=== PATIENT | female | born 1955 | race Caucasian/White ===

== ENCOUNTER → 2016-11-25 | Outpatient (REF) | payer OTHER ==
[~2016-11-25] MED LIST: /CLON1TA OR; /DULO30CA OR; ACET500C OR; ALFALFA PO; ARTHROTEC PO; EPIP0.3I IM; FLEXERIL PO; POTASSIUM PO; ROBA750T OR; SOMA350T OR; TIZA4TAB OR; TRAM50TA2 OR; TRAZ50TA OR; TYLENOL ARTHRITIS PO; TYLENOL PM PO; VARE1TA OR; [UNRECOGNIZED DRUG - REMARK] PO
== END ==
LOC: M LAB REF 16:26
PROVIDERS: ATTEND Physician Assistant
DX: N39.0 Urinary tract infection, site not specified (principal)

== ENCOUNTER → 2017-06-17 | Outpatient (CLI) | payer OTHER ==
--- NOTE | 2017-06-17 10:41 | REPMRS ---
Patient History The patient states she has not had a clinical breast exam in over a year. Patient is postmenopausal. Family history of breast cancer in mother at age 42, breast cancer in paternal grandmother at age 70, and colorectal cancer in daughter at age 31. Digital Woman Screen Mammo: June 17, 2017 - Exam #: [id number] Bilateral CC and MLO view(s) were taken. Technologist: Carla Castle, Technologist Prior study comparison: August 11, 2014, digital woman screen mammo performed at [facility]. April 16, 2010, bilateral screening mammogram, performed at [facility] ([facility] FINDINGS: There are scattered fibroglandular densities. There has been no change in the appearance of the mammogram from the prior studies. There is a mild amount of scattered fibroglandular density which is fairly symmetric. There is no interval development of dominant mass, architectural distortion, or clustered microcalcification suggestive of malignancy. ASSESSMENT: BI-RADS/ACR category 1 mammogram. Negative. Recommendation Routine screening mammogram in 1 year (for women over age 40). This patient's Lifetime Breast Cancer RIsk is estimated at 16.3 %. Annual screening Breast MRI scanniing is recommended for patient's whose lifetime risk assessment is over 20%. This mammogram was interpreted with the aid of an FDA-approved computer-aided dectection system. Electronically Signed By: Mathew Brown MD 06/17/17 [id number]
== END ==
LOC: M WHC 07:59
PROVIDERS: ATTEND Nurse Practitioner Family
DX: Z12.31 Encounter for screening mammogram for malignant neoplasm of breast (principal)

== ENCOUNTER → 2017-08-06 | Outpatient (CLI) | payer OTHER, MEDICAID | LOC: M PAIN 11:15 | DX: G89.29 Other chronic pain (principal); M53.3 Sacrococcygeal disorders, not elsewhere classified; M54.40 Lumbago with sciatica, unspecified side; F41.9 Anxiety disorder, unspecified; M16.11 Unilateral primary osteoarthritis, right hip; M17.12 Unilateral primary osteoarthritis, left knee; I10 Essential (primary) hypertension; E78.5 Hyperlipidemia, unspecified; K21.9 Gastro-esophageal reflux disease without esophagitis; Z88.0 Allergy status to penicillin; Z88.5 Allergy status to narcotic agent; Z88.8 Allergy status to other drugs, medicaments and biological substances; Z79.899 Other long term (current) drug therapy; Z87.891 Personal history of nicotine dependence | CPT/HCPCS: G0463 ==

== ENCOUNTER → 2017-08-18 | Outpatient (CLI) | payer OTHER | LOC: M PLARAD 08:44 | DX: M53.3 Sacrococcygeal disorders, not elsewhere classified (principal); M47.9 Spondylosis, unspecified | CPT/HCPCS: 72148 ==

== ENCOUNTER → 2017-08-27 | Outpatient (CLI) | payer OTHER, MEDICAID | LOC: M PAIN 09:30 | DX: M51.27 Other intervertebral disc displacement, lumbosacral region (principal); M54.16 Radiculopathy, lumbar region; M48.07 Spinal stenosis, lumbosacral region; M16.11 Unilateral primary osteoarthritis, right hip; M17.12 Unilateral primary osteoarthritis, left knee; E78.5 Hyperlipidemia, unspecified; Z79.899 Other long term (current) drug therapy; Z88.0 Allergy status to penicillin; Z88.5 Allergy status to narcotic agent; Z88.8 Allergy status to other drugs, medicaments and biological substances | CPT/HCPCS: G0463 ==

== ENCOUNTER → 2017-09-09 | Outpatient (CLI) | payer OTHER, MEDICAID ==
[~2017-09-09] MED LIST changes: -/CLON1TA OR; -/DULO30CA OR; -ACET500C OR; -ALFALFA PO; -ARTHROTEC PO; -EPIP0.3I IM; -FLEXERIL PO; +ISOVUE-M 300 61% 15ML VIAL (Q9967) As Ordered; +LIDOCAINE 1% SDV INJ 30 ML VIAL As Ordered; -POTASSIUM PO; -ROBA750T OR; -SOMA350T OR; -TIZA4TAB OR; -TRAM50TA2 OR; -TRAZ50TA OR; -TYLENOL ARTHRITIS PO; -TYLENOL PM PO; -VARE1TA OR; -[UNRECOGNIZED DRUG - REMARK] PO; +diazePAM 5 MG TAB As Ordered; +methylPREDNISolone SUSP 40 MG/ML (DEPO-medrol) VIAL (J1030) As Ordered; +oxyCODONE 5MG TAB As Ordered
== END ==
LOC: M PAIN 14:30
DX: G89.29 Other chronic pain (principal); M51.16 Intervertebral disc disorders with radiculopathy, lumbar region; I10 Essential (primary) hypertension; M16.11 Unilateral primary osteoarthritis, right hip; M17.12 Unilateral primary osteoarthritis, left knee; E78.5 Hyperlipidemia, unspecified; F41.1 Generalized anxiety disorder; Z79.899 Other long term (current) drug therapy; Z88.0 Allergy status to penicillin; Z88.5 Allergy status to narcotic agent; Z88.8 Allergy status to other drugs, medicaments and biological substances; Z87.891 Personal history of nicotine dependence
CPT/HCPCS: J1030

== ENCOUNTER → 2017-09-12 | Outpatient (CLI) | payer OTHER, MEDICAID | LOC: M PAIN 10:45 | DX: M51.27 Other intervertebral disc displacement, lumbosacral region (principal); M54.16 Radiculopathy, lumbar region; M48.07 Spinal stenosis, lumbosacral region; I10 Essential (primary) hypertension; E78.5 Hyperlipidemia, unspecified; K21.9 Gastro-esophageal reflux disease without esophagitis; Z79.899 Other long term (current) drug therapy; Z88.8 Allergy status to other drugs, medicaments and biological substances | CPT/HCPCS: G0463 ==

== ENCOUNTER → 2017-10-21 | Outpatient (CLI) | payer OTHER, MEDICAID | LOC: M PAIN 10:00 | DX: G89.29 Other chronic pain (principal); M51.27 Other intervertebral disc displacement, lumbosacral region; M54.16 Radiculopathy, lumbar region; M48.07 Spinal stenosis, lumbosacral region; K21.9 Gastro-esophageal reflux disease without esophagitis; F41.1 Generalized anxiety disorder; M16.11 Unilateral primary osteoarthritis, right hip; M17.12 Unilateral primary osteoarthritis, left knee; I10 Essential (primary) hypertension; E78.5 Hyperlipidemia, unspecified; Z87.891 Personal history of nicotine dependence; Z88.0 Allergy status to penicillin; Z88.5 Allergy status to narcotic agent; Z88.6 Allergy status to analgesic agent; Z79.899 Other long term (current) drug therapy | CPT/HCPCS: G0463 ==

== ENCOUNTER 2017-12-26 11:10 | Outpatient (RCR) | payer OTHER, MEDICAID | END 2018-01-17 | LOC: M PT 11:10 | DX: Z51.89 Encounter for other specified aftercare (principal); M54.2 Cervicalgia | CPT/HCPCS: 97010 ==

== ENCOUNTER 2018-01-20 09:27 | Outpatient (RCR) | payer OTHER | END 2018-02-17 | LOC: M PT 09:27 | DX: Z51.89 Encounter for other specified aftercare (principal); M54.2 Cervicalgia ==

== ENCOUNTER → 2018-01-23 | Outpatient (CLI) | payer OTHER | LOC: M RAD 10:49 | DX: M25.78 Osteophyte, vertebrae (principal); M50.31 Other cervical disc degeneration, high cervical region; M50.321 Other cervical disc degeneration at C4-C5 level; M50.821 Other cervical disc disorders at C4-C5 level; Z98.1 Arthrodesis status; Z87.310 Personal history of (healed) osteoporosis fracture | CPT/HCPCS: 72052 ==

== ENCOUNTER 2019-02-02 11:04 | Day surgery (SDC) | payer OTHER ==
[~2019-02-02] VITALS: Ht 167.6 cm; Wt 90.7 kg
[~2019-02-02 11:04] MED LIST changes: +ACET500C OR; +ALFALFA PO; +ARTHROTEC PO; +CLINDAMYCIN 900 MG in APPROPRIATE DILUENT 1 EA IV ONE; +CLON-412 OR; +CLONI1TA PO; +CYMB1CAP5 OR; +EPIP0.3I IM; +FLEXERIL PO; +FLON1SPR; +HYDR12CA PO; -ISOVUE-M 300 61% 15ML VIAL (Q9967) As Ordered; -LIDOCAINE 1% SDV INJ 30 ML VIAL As Ordered; +LIDOCAINE 2% INJ 100 MG/5 ML SDV (FOR ANES.) As Ordered ONE; +MIDAZOLAM INJ 2 MG/2 ML VIAL (J2250) As Ordered ONE; +NAPR-855 PO; +ONDANSETRON 4MG/2ML VIAL (J2405) As Ordered ONE; +POTASSIUM PO; +PROPOFOL 200 MG/20 ML VIAL As Ordered ONE; +RANI150T PO; +ROBA750T OR; +SM M250T PO; +SOMA350T OR; +TIZA4TAB OR; +TRAM50TA2 OR; +TRAZ50TA OR; +TYLENOL ARTHRITIS PO; +TYLENOL PM PO; +VARE1TA OR; +XANA1TAB2 PO; +[UNRECOGNIZED DRUG - REMARK] PO; +dexameTHASONE 4 MG/ML 1ML VIAL (J1100) As Ordered ONE; -diazePAM 5 MG TAB As Ordered; +fentaNYL 100 MCG/2 ML INJECTION (J3010) As Ordered ONE; -methylPREDNISolone SUSP 40 MG/ML (DEPO-medrol) VIAL (J1030) As Ordered; -oxyCODONE 5MG TAB As Ordered; +tylenol pm PO
[2019-02-02] MEDS ORDERED: CLINDAMYCIN 600 MG/50 ML PREMIX BAG As Ordered ONE (12:46)
[2019-02-02] MEDS ORDERED: CLINDAMYCIN INJ 900MG/6ML VIAL As Ordered ONE (12:48)
[2019-02-02] MEDS ORDERED: SCOPOLAMINE 1MG TRANSDERMAL PATCH As Ordered ONE (13:09)
[2019-02-02] MEDS ORDERED: METOCLOPRAMIDE INJ 10MG/2ML VIAL (J2765) As Ordered ONE (13:32)
[2019-02-02] MEDS ORDERED: SCOPOLAMINE 1MG TRANSDERMAL PATCH TOP ONE (13:45)
[2019-02-02] MEDS ORDERED: LR 1,000 ML IV ONE (13:45)
[2019-02-02] MEDS ORDERED: KETOROLAC 60 MG/2 ML VIAL (J1885) As Ordered ONE (14:31)
[2019-02-02] MEDS ORDERED: fentaNYL 100 MCG/2 ML INJECTION (J3010) As Ordered ONE (14:31)
[2019-02-02] MEDS: PERCOCET 5MG/325MG TAB PO PRN ×2 (14:40→15:09)
[2019-02-02] MEDS ORDERED: PERCOCET 5MG/325MG TAB As Ordered ONE (14:41)
--- NOTE | 2019-02-02 14:51 | REP ---
RIGHT ANKLE: TWO VIEWS. HISTORY: Hardware removal. 1 minute 33 seconds of fluoroscopy time is reported. FINDINGS: AP and lateral views of the right calcaneus and ankle demonstrate pin tracks, status post subtalar joint arthrodesis. No metallic hardware is seen. Electronically Signed by Negrito Brown MD 02/02/2019 03:03 P
[2019-02-02] MEDS ORDERED: fentaNYL 100 MCG/2 ML INJECTION (J3010) IV PRN (15:00)
[2019-02-02] MEDS ORDERED: ONDANSETRON 4MG/2ML VIAL (J2405) IV PRN (15:00)
[2019-02-02] MEDS ORDERED: LR 1,000 ML IV SCH (15:00)
[2019-02-02 15:55] VITALS: BP 135/69
--- NOTE | 2019-02-02 20:21 | ECGEPIP ---
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
--- NOTE | 2019-02-05 08:27 | RO ---
DATE OF PROCEDURE: 02/02/2019 PREOPERATIVE DIAGNOSES: 1. Painful right foot hardware. 2. Right heel callus. POSTOPERATIVE DIAGNOSES: 1. Painful right foot hardware. 2. Right heel callus. PROCEDURE: 1. Right foot removal of hardware. 2. Right heel excision callus. SURGEON: Aye Schaeffer MD PROJECT ENGINEER CHEMICALS: REDDY Murray and REDDY Velasquez. ANESTHESIA: Laryngeal mask airway (LMA). ESTIMATED BLOOD LOSS (EBL): 5 mL. COMPLICATIONS: None. CONDITION: Stable to recovery. INDICATIONS: Yarelis Maki is a 63-year-old female who has had difficulty with painful hardware status post a subtalar fusion at an outside institution. Risks and benefits of surgery were discussed with the patient in detail and include, but are not limited to, infection, damage to nerves and blood vessels, continued pain and stiffness, need for additional procedures. Informed consent was obtained in the office. DESCRIPTION OF PROCEDURE: Patient was met in the preoperative holding area where her right lower extremity was marked as the correct operative side. Informed consent was reviewed. She was then taken to the operating room and placed in the supine position on the operating room table. Bony prominences were well padded. She underwent LMA anesthesia. A well padded tourniquet was applied to the right upper thigh. The right lower extremity underwent a chlorhexidine scrub and then was prepped and draped in the normal sterile fashion. An official time-out was held with the correct patient, operative site and operative procedure were verified. At this point, the first screw was localized using a lateral C-arm. A small stab incision was made in the heel. I was able to easily localize the screw with a guidewire. There was no cannulated screwdriver available and so, the screw was further isolated and was removed with ease using the appropriate screwdriver. Following this, the second screw was similarly localized using C-arm. Again, a wire was placed to confirm exact location of that screw. The area was then curetted out and screws remained with a screwdriver. At this point, the patient's callus was then excised as well using a fresh knife. Her stab incisions were closed using a #3-0 Vicryl and #3-0 nylon. A well padded dressing was applied. The patient was extubated and taken to the recovery room in stable condition. PLAN: The patient will be partial weightbearing in the right lower extremity using a boot until her wounds heal. She will followup in 2 weeks with Kartik for suture removal. She can then advance her activities as long as her wounds look healed.
== END 2019-02-02 16:15 | disposition home or self-care (01) ==
LOC: M SDC 11:04
PROVIDERS: ATTEND Orthopaedic Surgery
DX: T84.84XA Pain due to internal orthopedic prosthetic devices, implants and grafts, initial encounter (principal); I10 Essential (primary) hypertension; K21.9 Gastro-esophageal reflux disease without esophagitis; M12.9 Arthropathy, unspecified; M79.7 Fibromyalgia; F41.9 Anxiety disorder, unspecified; F40.240 Claustrophobia; T88.59XD Other complications of anesthesia, subsequent encounter; Z88.0 Allergy status to penicillin; Z88.5 Allergy status to narcotic agent; Z88.8 Allergy status to other drugs, medicaments and biological substances; Z78.0 Asymptomatic menopausal state; Z79.899 Other long term (current) drug therapy; Z96.643 Presence of artificial hip joint, bilateral; Z96.652 Presence of left artificial knee joint
CPT/HCPCS: 20680; 76000; 93005; J1100; J1885; J2250; J2405; J2765; J3010

== ENCOUNTER → 2019-02-25 | Outpatient (CLI) | payer OTHER ==
[~2019-02-25] MED LIST changes: -CLINDAMYCIN 900 MG in APPROPRIATE DILUENT 1 EA IV ONE; -LIDOCAINE 2% INJ 100 MG/5 ML SDV (FOR ANES.) As Ordered ONE; -MIDAZOLAM INJ 2 MG/2 ML VIAL (J2250) As Ordered ONE; -ONDANSETRON 4MG/2ML VIAL (J2405) As Ordered ONE; -PROPOFOL 200 MG/20 ML VIAL As Ordered ONE; -dexameTHASONE 4 MG/ML 1ML VIAL (J1100) As Ordered ONE; -fentaNYL 100 MCG/2 ML INJECTION (J3010) As Ordered ONE
--- NOTE | 2019-02-26 02:15 | REP ---
Clinical: Chronic sinusitis. Technique: Four views of the facial sinuses. Findings: Partial opacification and mucosal thickening primarily involves the left maxillary sinus. No fluid level. No foreign body. Osseous structures are intact. Impression: Mucosal thickening to the left maxillary sinus. Electronically Signed by Geovanny Herzog MD 02/26/2019 02:06 A
== END ==
LOC: M RAD 16:36
PROVIDERS: ATTEND Nurse Practitioner
DX: J32.9 Chronic sinusitis, unspecified (principal)

== ENCOUNTER → 2019-03-16 | Outpatient (REF) | payer OTHER | LOC: M LAB REF 17:14 | PROVIDERS: ATTEND Otolaryngology | DX: J32.0 Chronic maxillary sinusitis (principal) ==

== ENCOUNTER → 2019-03-24 | Outpatient (CLI) | payer OTHER ==
[~2019-03-24] MED LIST changes: +ALL10TAB29 PO
--- NOTE | 2019-03-24 15:21 | REP ---
Maxillofacial CT study without contrast: History: Chronic maxillary sinusitis. No comparison imaging. Findings: The left maxillary sinus is completely opacified. There is a large air-fluid level and moderate mucosal thickening in the right maxillary sinus. There is moderate bilateral anterior ethmoid sinusitis, left more prominent than right. The left frontal sinus is completely opacified. Sphenoid air cells are clear. Mastoid aeration is normal and symmetric. Bony sinus and orbital margins are intact. The ostiomeatal complexes are obscured by mucosal thickening. Nasal turbinate soft tissues are symmetric. No nasal polyp is appreciated. Bony nasal septum is not deviated. No intra orbital or intracranial abnormality is seen. Impression: Polysinusitis changes as above. Electronically Signed by Negrito Brown MD 03/24/2019 03:37 P
== END ==
LOC: M RAD 14:14
PROVIDERS: ATTEND Otolaryngology
DX: J32.0 Chronic maxillary sinusitis (principal); J32.2 Chronic ethmoidal sinusitis; J32.1 Chronic frontal sinusitis

== ENCOUNTER 2019-04-13 10:35 | Day surgery (SDC) | payer OTHER ==
[~2019-04-13] VITALS: Ht 167.6 cm; Wt 89.4 kg
[2019-04-13] MEDS ORDERED: SCOPOLAMINE 1MG TRANSDERMAL PATCH As Ordered ONE (12:24)
[2019-04-13] MEDS ORDERED: SCOPOLAMINE 1MG TRANSDERMAL PATCH TOP ONE (12:30)
[2019-04-13] MEDS ORDERED: LR 1,000 ML IV ONE (12:30)
[2019-04-13] MEDS ORDERED: LIDOCAINE W/EPINEPHRINE 1% 20ML VIAL As Ordered ONE (13:03)
[2019-04-13] MEDS ORDERED: SODIUM CHLORIDE 0.9% NASAL GEL 15GM (AYR) As Ordered ONE (13:03)
[2019-04-13] MEDS ORDERED: METHYLENE BLUE 0.5% (5MG/ML) 10 ML AMP (PROVAYBLUE)(Q9968 PER 1MG) As Ordered ONE (13:03)
[2019-04-13] MEDS ORDERED: OXYMETAZOLINE NASAL SPRAY (AFRIN) As Ordered ONE ×2 (13:04→14:28)
[2019-04-13] MEDS ORDERED: LACRILUBE (AKWA TEARS) OPHTH OINT 3.5 GM As Ordered ONE (13:14)
[2019-04-13] MEDS ORDERED: ROCURONIUM BROMIDE 50 MG/5 ML VIAL As Ordered ONE (13:14)
[2019-04-13] MEDS ORDERED: LIDOCAINE 2% INJ 100 MG/5 ML SDV (FOR ANES.) As Ordered ONE (13:14)
[2019-04-13] MEDS ORDERED: propofoL 200 MG/20 ML VIAL As Ordered ONE (13:14)
[2019-04-13] MEDS ORDERED: CLINDAMYCIN 600 MG/50 ML PREMIX BAG As Ordered ONE (13:14)
[2019-04-13] MEDS ORDERED: ONDANSETRON 4MG/2ML VIAL (J2405) As Ordered ONE ×2 (13:14→16:18)
[2019-04-13] MEDS ORDERED: fentaNYL 250 MCG/5 ML INJECTION (J3010) As Ordered ONE (13:14)
[2019-04-13] MEDS ORDERED: MIDAZOLAM INJ 2 MG/2 ML VIAL (J2250) As Ordered ONE (13:14)
[2019-04-13] MEDS ORDERED: dexameTHASONE 4 MG/ML 1ML VIAL (J1100) As Ordered ONE (13:14)
[2019-04-13] MEDS ORDERED: CLINDAMYCIN 600 MG in IV 1 EA IV ONE (13:30)
[2019-04-13] MEDS ORDERED: SUGAMMADEX SODIUM 500 MG/5 ML VIAL (BRIDION) As Ordered ONE (14:05)
[2019-04-13] MEDS ORDERED: ePHEDrine SULFATE 25 MG/5 ML(5MG/ML) SYRINGE As Ordered ONE (14:05)
[2019-04-13] MEDS ORDERED: HYDROmorphone HCL 2 MG/ML 1ML VIAL (J1170) As Ordered ONE (15:16)
[2019-04-13] MEDS ORDERED: LABETALOL HCL 100 MG/20 ML VIAL As Ordered ONE (15:57)
[2019-04-13] MEDS ORDERED: METOCLOPRAMIDE INJ 10MG/2ML VIAL (J2765) As Ordered ONE (16:24)
[2019-04-13] MEDS ORDERED: HYDROMORPHONE HCL 0.5 MG/ 0.5 ML SYRINGE (J1170 PER 1) IV PRN (16:30)
[2019-04-13] MEDS ORDERED: fentaNYL 100 MCG/2 ML INJECTION (J3010) IV PRN (16:30)
[2019-04-13] MEDS ORDERED: ONDANSETRON 4MG/2ML VIAL (J2405) IV PRN (16:30)
[2019-04-13] MEDS ORDERED: PERCOCET 5MG/325MG TAB PO PRN (16:30)
[2019-04-13] MEDS ORDERED: METOCLOPRAMIDE INJ 10MG/2ML VIAL (J2765) IV PRN (16:30)
[2019-04-13] MEDS ORDERED: ACETAMINOPHEN TAB 650MG DOSE (2X325MG) PO PRN (16:45)
[2019-04-13] MEDS: KETOROLAC 30 MG/ML VIAL (J1885) IV ONE ×2 (16:45→17:45)
[2019-04-13 18:20] VITALS: BP 139/67
--- NOTE | 2019-04-14 11:41 | RO ---
DATE OF OPERATION: 04/13/2019 PREOPERATIVE DIAGNOSES: Chronic pansinusitis with severe foul purulence mainly from the left middle meatus but also affecting the left frontal, anterior ethmoids, and maxillary sinus, also with findings on previous CT scan affecting right maxillary sinus and right anterior ethmoids but not to the same extent, and also nasal congestion. POSTOPERATIVE DIAGNOSES: Chronic pansinusitis with severe foul purulence mainly from the left middle meatus but also affecting the left frontal, anterior ethmoids, and maxillary sinus, also with findings on previous CT scan affecting right maxillary sinus and right anterior ethmoids but not to the same extent, and also nasal congestion. OPERATIONS PERFORMED: 1. Bilateral endoscopic partial ethmoidectomies. 2. Endoscopic left maxillary sinusotomy with removal of tissue and irrigation. 3. Right endoscopic maxillary sinusotomy. 4. Left balloon frontal sinuplasty. 5. Bilateral inferior turbinoplasty utilizing the microdebrider. SURGEON: Sam Sandoval Jr., MD FISH FROG OR OYSTER FARMER: ANESTHESIA:General endotracheal anesthesia, Dr. Henderson. IMPLANTS USED: Left contour Propel stent in the left maxillary sinusotomy site and left and right partial ethmoidectomy had mini Propel stents placed. PROCEDURE IN DETAIL: The patient in a supine position after being induced, intubated, prepped and draped in the usual fashion. The seal mixer had noticed a foul smell, which the patient had been noticing for some time. The patient was noted after intubation as having the left nasal cavity filled with pus. This was suctioned out. The nasal cavity was significantly congested. This was also suctioned out, and topical Afrin pledgets were placed in the nasal cavity. The septum was relatively straight after this was done. Time-out had been performed. The patient identified for the procedure. At this point, utilizing the Acclarent balloon device, the left frontal sinus was cannulated with the Coreen device with clear identification and movement of the frontal sinus with clear focal isolation of the left frontal sinus. The left frontal balloon was easily cannulated into the area. Once this was done, the balloon was slowly raised from 2 to 4 to 6 to 8 to 12 cm of H2O, and the sinus was irrigated, and luna pus was coming out after the Coreen device was removed. Attention then was drawn to the left maxillary, where there was luna pus that was coming out of the middle meatus, as well as the ethmoid area. The maxillary seeker was used identify the left maxillary ostium. As this was done, luna pus came out. A culture of aerobic, anaerobic, and fungal was performed, as well as Gram stain. Then, utilizing a curvilinear olive-tip suction, the maxillary sinus was cannulated, and there was thick thick chronic inflammatory and acute inflammatory changes in the maxillary sinus opening. The uncinate process had essentially eroded. The pediatric backbiter was used to further remove some of the anterior tissue; and then once the maxillary sinus had been drained of luna pus, this area was then utilized to enhance the opening with a straight thru-cut going into the posterior maxillary sinus side. Once this was done, the sinus was copiously irrigated with irrigation. Luna pus was significantly obtained again. Another culture had been taken. So, two sets of cultures were obtained from the left maxillary sinus. After this was completely irrigated multiple times and wide patent maxillary ostium was done, a Cyclops scope was used to take photo documentation of the maxillary sinus, and there was no evidence of any foreign body that could be identified. Inspissated pus was completely removed with irrigation, and there was much improvement in the maxillary sinus after copious irrigation. Next, utilizing the Straightshot microdebrider with the blade more towards the central aspect away from the lamina papyracea, anterior ethmoidectomy was performed along with 45 degrees straight thru-cuts as necessary with care not to aggressively use the microdebrider; and then also in a similar fashion, the left maxillary sinus was also done, as well. The patient also prior to surgery had clindamycin given intravenous (IV) because of hip implant that she had. The patient had a very careful partial ethmoidectomy performed with again the straight microdebrider, as well as 45-degree thru-cut, as well as with a straight punch and minimal controlled burst with the microdebrider, again with the blade facing away from the lamina papyracea. Once this was done, pledgets were placed in the opening of the partial ethmoidectomy. Attention was drawn to the right side, where there was a little bit of a high septal deviation, but the surgeon felt the procedure could be done without removal of that. The patient ended up requiring medialization of the paradoxical curve of the right middle turbinate. Once this was done, the patient had identification with the maxillary seeker of the natural ostium site; and on this side, the uncinate did not appear to be eroded. Utilizing the frontal seeker and the maxillary seeker, the uncinate process which had been previously injected at its base was moved slightly anteriorly, and a 45-degree thru-cut was used after the pediatric backbiter was used to enhance the anterior portion of the natural ostium. The patient then had attention drawn to the anterior ethmoidectomy with controlled microdebrider with the cutting blade facing towards the center away from the lamina papyracea. Ethmoid bulla was identified and partially removed. The maxillary sinusotomy site was partially enhanced with the pediatric backbiter and also enhanced posteriorly with straight thru-cuts. The maxillary sinus on the right side appeared to be much more healthy than the other side. This was irrigated with saline, and there was no pus identified at this time. At this point, the 2.9 microdebrider was changed, and submucosal resection of the inferior turbinates after injecting with 2 mL of 1% lidocaine with 1:100,000 epinephrine in each inferior turbinate with a 27-gauge needle was performed to decrease the inflammation of the inferior turbinates. At this point, the patient had a contour Propel splint placed in the left middle meatus that had been created, and this was irrigated with saline; and then a mini Propel splint was placed in left anterior ethmoid site, and again this was hydrated. The right middle meatus had a Propel mini placed in the anterior ethmoid site, as well. These were carefully hydrated. Blood was suctioned from the nasal cavity, and nasal packing was trimmed along its long axis and with care was placed along the floor of the nasal cavity to prevent any dislodgement of the Propel splints; and the patient was turned over to the seal mixer. No problems. No complications. Again, anesthesia was general via endotracheal tube. EBL 75 mls. Initial seal mixer was Dr. Henderson. Ending anesthesiologist was Dr. Benavidez. [facility] HOSPITALBalta
== END 2019-04-13 18:25 | disposition home or self-care (01) ==
LOC: M SDC 10:35
PROVIDERS: ATTEND Otolaryngology
DX: J32.4 Chronic pansinusitis (principal); I10 Essential (primary) hypertension; K21.9 Gastro-esophageal reflux disease without esophagitis; F41.9 Anxiety disorder, unspecified; M79.7 Fibromyalgia; Z79.899 Other long term (current) drug therapy; Z88.1 Allergy status to other antibiotic agents; Z88.5 Allergy status to narcotic agent; Z88.0 Allergy status to penicillin; Z88.8 Allergy status to other drugs, medicaments and biological substances
CPT/HCPCS: 30802; 31254; 31267; 31296; 87070; 87075; 87076; 87205; 88305; C2625; J1100; J1170; J1885; J2250; J2405; J2765; J3010; Q9968

== ENCOUNTER → 2020-05-26 | Outpatient (REF) | payer OTHER ==
[~2020-05-26] MED LIST changes: -ALL10TAB29 PO; +CETI-24 PO
[2020-05-26 18:46] LABS: APPEARANCE, URINE TURBID (CLEAR); BACTERIA, URINE AUTO 1+ (NEGATIVE); BILIRUBIN, URINE AUTO NEGATIVE (NEGATIVE); BLOOD, URINE BLOOD 2+ (NEGATIVE); COLOR, URINE YELLOW (YELLOW); GLUCOSE, URINE (UA) AUTO NEGATIVE (NEGATIVE); KETONE, URINE AUTO NEGATIVE (NEGATIVE); LEUKOCYTE ESTERASE, URINE AUTO 3+ (NEGATIVE); MUCUS, URINE SMALL (NEGATIVE); NITRITE, URINE AUTO NEGATIVE (NEGATIVE); PROTEIN, URINE AUTO NEGATIVE (NEGATIVE); RBC, URINE AUTO 8 /HPF (0-3); SQUAMOUS EPITHELIAL CELL UR AU 0 /HPF (0-6); UROBILINOGEN, URINE AUTO 0.2 mg/dL (0.0-2.0); WBC, URINE AUTO TNTC /HPF (0-3)
== END ==
LOC: M LAB REF 16:29
PROVIDERS: ATTEND Physician Assistant Medical
DX: N39.0 Urinary tract infection, site not specified (principal)

== ENCOUNTER 2020-08-17 17:19 | Emergency (ER) | payer OTHER ==
[~2020-08-17] VITALS: Ht 167.6 cm; Wt 100.0 kg
--- NOTE | 2020-08-17 18:36 | REP ---
INDICATION: fall pain with movement. COMPARISON: None. TECHNIQUE: Four views FINDINGS: There is a distal radial fracture with dorsal angulation and dorsal displacement. There is no evidence of a definite concomitant ulnar fracture. IMPRESSION: Deshawn Colles fracture <Electronically signed by Tommy Aguilar > 08/17/20 [id number]
--- NOTE | 2020-08-17 18:38 | REP ---
INDICATION: fall pain with movement. COMPARISON: None. TECHNIQUE: Two views FINDINGS: There is a distal radial fracture. There are no additional fractures. IMPRESSION: As above,See the wrist report.. <Electronically signed by Tommy Aguilar > 08/17/20 [id number]
[2020-08-17] MEDS ORDERED: fentaNYL 100 MCG/2 ML INJECTION (J3010) IV ONE (19:00)
[2020-08-17] MEDS ORDERED: MORPHINE 4 MG/ML 1ML VIAL/SYRINGE (J2270) IV ONE (19:45)
[2020-08-17] MEDS ORDERED: PERC5TAB12 PO (20:13)
[2020-08-17 20:48] VITALS: BP 134/82
--- NOTE | 2020-08-17 20:57 | REPVR ---
PROCEDURE INFORMATION: Exam: CT Right Upper Extremity Without Contrast, Wrist Exam date and time: 08/17/2020 8:29 PM Age: 64 years old Clinical indication: Condition or disease; Other: FX; Additional info: Needed for surgery per ortho TECHNIQUE: Imaging protocol: CT of the Right upper extremity without contrast was performed. Exam focused on the wrist. Radiation optimization: All CT scans at this facility use at least one of these dose optimization techniques: automated exposure control; mA and/or kV adjustment per patient size (includes targeted exams where dose is matched to clinical indication); or iterative reconstruction. COMPARISON: CT-Wrist WITHOUT CONTRAST 11/16/2014 1:24 PM FINDINGS: Bones/joints: Fluid is present in the radiocarpal and intercarpal joints. There is a comminuted impacted intra-articular fracture of the distal radius. There is dorsal angulation of the distal radial fragment. Normal carpal alignment. 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 Small calcification of uncertain significance is noted adjacent to the ulnar styloid. Distal ulna is otherwise intact. Soft tissues: Mild generalized soft tissue swelling at the wrist. Fluid is also present in the carpal tunnel. IMPRESSION: Comminuted intra-articular fracture of the distal radius with dorsal angulation as above. Electronically signed by: Devante Robbins On 08/17/2020 20:57:31 PM
== END 2020-08-17 20:50 | disposition home or self-care (01) ==
LOC: M ED 17:19 → EDBD 17:19 → M ED 20:50
DX: S52.501A Unspecified fracture of the lower end of right radius, initial encounter for closed fracture (principal); W01.0XXA Fall on same level from slipping, tripping and stumbling without subsequent striking against object, initial encounter; Y92.018 Other place in single-family (private) house as the place of occurrence of the external cause; I10 Essential (primary) hypertension; M79.7 Fibromyalgia; Z79.899 Other long term (current) drug therapy; Z88.0 Allergy status to penicillin; Z88.1 Allergy status to other antibiotic agents; Z88.5 Allergy status to narcotic agent; Z88.8 Allergy status to other drugs, medicaments and biological substances
CPT/HCPCS: 73090; 73110; 73200; 96374; 96375; 99284; J2270; J3010

== ENCOUNTER → 2020-10-23 | Outpatient (CLI) | payer OTHER ==
[~2020-10-23] MED LIST changes: +PERC5TAB12 PO
--- NOTE | 2020-10-23 15:37 | REPMRS ---
Patient History The patient states she had a clinical breast exam in 2020. Family history of breast cancer at age 42 in mother, breast cancer at age 70 in paternal grandmother, colorectal cancer at age 31 in daughter. 3D TOMOSYNTHESIS WAS PERFORMED. The Gail Garcia lifetime risk for breast cancer is 14.6%. Volpara breast density b. Digital Woman Screen Mammo: October 23, 2020 - Exam #: [id number] Bilateral CC and MLO view(s) were taken. Technologist: Deisy Bradley, Technologist Prior study comparison: June 17, 2017, digital woman screen mammo performed at [facility]. August 11, 2014, digital woman screen mammo performed at [facility]. FINDINGS: There are scattered fibroglandular densities. There has been no change in the appearance of the mammogram from the prior studies. There is a mild amount of residual fibroglandular tissue which is fairly symmetric. There is no interval development of dominant mass, architectural distortion, or clustered microcalcification suggestive of malignancy. Assessment: BI-RADS/ACR category 1 mammogram. Negative Mammogram. Recommendation Routine screening mammogram in 1 year (for women over age 40). This mammogram was interpreted with the aid of an FDA-approved computer-aided dectection system. Electronically Signed By: Won Jolley MD 10/23/20 1153
== END ==
LOC: M WHC 14:20
PROVIDERS: ATTEND Physician Assistant
DX: Z12.31 Encounter for screening mammogram for malignant neoplasm of breast (principal)

== ENCOUNTER → 2021-03-20 | Outpatient (REF) | payer MEDICARE ==
[2021-03-20 14:55] LABS: ALBUMIN 3.2 GM/DL (3.2-5.2); ALT/SGPT 35 U/L (12-78); BILIRUBIN,TOTAL 0.4 MG/DL (0.2-1.0); BLOOD UREA NITROGEN 16 MG/DL (7-18); CALCIUM LEVEL 8.8 MG/DL (8.8-10.2); CARBON DIOXIDE LEVEL 30 MEQ/L (21-32); CHLORIDE LEVEL 108 MEQ/L (98-107); CHOLESTEROL LEVEL 232 MG/DL (<200); CHOLESTEROL RISK RATIO 5.658 (<5); CREATININE FOR GFR 0.68 MG/DL (0.55-1.30); GLOMERULAR FILTRATION RATE > 60.0 (>45); GLUCOSE, FASTING 100 MG/DL (70-100); HDL CHOLESTEROL 41 MG/DL (>40); LDL CHOLESTEROL 131 MG/DL (<100); NON-HDL-C 191 MG/DL; POTASSIUM SERUM 4.5 MEQ/L (3.5-5.1); SODIUM LEVEL 142 MEQ/L (136-145); TOTAL PROTEIN 6.7 GM/DL (6.4-8.2); TRIGLYCERIDES LEVEL 299 MG/DL (<150)
== END ==
LOC: M SFHCADAM 08:46
PROVIDERS: ATTEND Physician Assistant
DX: E78.2 Mixed hyperlipidemia (principal); I10 Essential (primary) hypertension; E04.1 Nontoxic single thyroid nodule
CPT/HCPCS: 80053; 80061; 84443; G0463

== ENCOUNTER → 2021-04-18 | Outpatient (CLI) | payer MEDICARE ==
--- NOTE | 2021-04-18 08:24 | REP ---
INDICATION: HX THYROID NODULE COMPARISON: None. TECHNIQUE: Jolley scale and color evaluation of the thyroid gland using the linear high frequency transducer. FINDINGS: The thyroid gland is heterogeneous with multiple bilateral nodules noted. Right thyroid lobe measures 5.2 x 1.6 x 1.5 cm and includes 8.4 x 8.0 x 4.9 mm midpole hypoechoic nodule, 8.0 x 7.2 x 5.8 mm midpole isoechoic nodule, and 10.9 x 4.3 x 5.0 mm lower pole nodule. Isthmus measures 2.1 mm in width. Left thyroid lobe measures 4.2 x 1.7 x 1.3 cm and includes 6.2 x 6.9 x 4.9 mm isoechoic midpole complex cyst/nodule and 8.7 x 8.7 x 8.8 mm isoechoic lower pole nodule with small calcification. IMPRESSION: Few bilateral nonspecific indeterminate thyroid nodules. Consider 9-12 month follow-up evaluation. <Electronically signed by Geovanny Herzog > 04/18/21 0807
== END ==
LOC: M RAD 06:41
PROVIDERS: ATTEND Physician Assistant
DX: E04.1 Nontoxic single thyroid nodule (principal)

== ENCOUNTER → 2021-07-03 | Outpatient (REF) | payer MEDICARE, MEDICAID ==
[2021-07-03 12:07] LABS: APPEARANCE, URINE CLOUDY (CLEAR); BACTERIA, URINE AUTO NEGATIVE (NEGATIVE); BILIRUBIN, URINE AUTO NEGATIVE (NEGATIVE); BLOOD, URINE BLOOD 1+ (NEGATIVE); COLOR, URINE YELLOW (YELLOW); GLUCOSE, URINE (UA) AUTO NEGATIVE (NEGATIVE); KETONE, URINE AUTO NEGATIVE (NEGATIVE); LEUKOCYTE ESTERASE, URINE AUTO 3+ (NEGATIVE); MUCUS, URINE SMALL (NEGATIVE); NITRITE, URINE AUTO NEGATIVE (NEGATIVE); PROTEIN, URINE AUTO 1+ mg/dL (NEGATIVE); RBC, URINE AUTO 6 /HPF (0-3); SPECIFIC GRAVITY URINE AUTO 1.021 (1.002-1.035); SQUAMOUS EPITHELIAL CELL UR AU 1 /HPF (0-6); WBC, URINE AUTO TNTC /HPF (0-3)
== END ==
LOC: M LAB REF 11:34
PROVIDERS: ATTEND Physician Assistant Medical
DX: R30.0 Dysuria (principal)

== ENCOUNTER → 2021-07-10 | Outpatient (REF) | payer MEDICARE ==
[2021-07-10 22:07] LABS: APPEARANCE, URINE HAZY (CLEAR); BACTERIA, URINE AUTO 1+ (NEGATIVE); BILIRUBIN, URINE AUTO NEGATIVE (NEGATIVE); BLOOD, URINE BLOOD 1+ (NEGATIVE); COLOR, URINE STRAW (YELLOW); GLUCOSE, URINE (UA) AUTO NEGATIVE (NEGATIVE); KETONE, URINE AUTO NEGATIVE (NEGATIVE); LEUKOCYTE ESTERASE, URINE AUTO 3+ (NEGATIVE); MUCUS, URINE SMALL (NEGATIVE); NITRITE, URINE AUTO NEGATIVE (NEGATIVE); PROTEIN, URINE AUTO NEGATIVE (NEGATIVE); RBC, URINE AUTO 0 /HPF (0-3); SPECIFIC GRAVITY URINE AUTO 1.003 (1.002-1.035); SQUAMOUS EPITHELIAL CELL UR AU 0 /HPF (0-6); UROBILINOGEN, URINE AUTO 0.2 mg/dL (0.0-2.0); WBC, URINE AUTO 64 /HPF (0-3)
== END ==
LOC: M LAB REF 21:12
PROVIDERS: ATTEND Physician Assistant Medical
DX: R30.0 Dysuria (principal)

== ENCOUNTER → 2021-07-16 | Outpatient (CLI) | payer MEDICARE | LOC: M LAB 10:17 | PROVIDERS: ATTEND Orthopaedic Surgery | DX: M25.559 Pain in unspecified hip (principal); M25.569 Pain in unspecified knee ==

== ENCOUNTER → 2021-08-07 | Outpatient (CLI) | payer MEDICARE | LOC: M WHC 09:39 | PROVIDERS: ATTEND Internal Medicine | DX: M85.80 Other specified disorders of bone density and structure, unspecified site (principal) ==

== ENCOUNTER → 2021-08-31 | Outpatient (REF) | payer MEDICARE, MEDICAID ==
[2021-09-01 18:08] LABS: ANTINUCLEAR ANTIBODIES DIRECT Negative (Negative)
== END ==
LOC: M LAB REF 11:50
PROVIDERS: ATTEND Internal Medicine
DX: M25.50 Pain in unspecified joint (principal)

== ENCOUNTER → 2021-09-14 | Outpatient (CLI) | payer MEDICARE, MEDICAID | LOC: M RAD 13:00 | PROVIDERS: ATTEND Physician Assistant | DX: J32.8 Other chronic sinusitis (principal); G31.89 Other specified degenerative diseases of nervous system ==

== ENCOUNTER → 2022-01-02 | Outpatient (REF) | payer MEDICARE, MEDICAID ==
[2022-01-02 14:41] LABS: APPEARANCE, URINE CLOUDY (CLEAR); BACTERIA, URINE AUTO 1+ (NEGATIVE); BILIRUBIN, URINE AUTO NEGATIVE (NEGATIVE); BLOOD, URINE BLOOD 2+ (NEGATIVE); COLOR, URINE YELLOW (YELLOW); GLUCOSE, URINE (UA) AUTO NEGATIVE (NEGATIVE); KETONE, URINE AUTO TRACE mg/dL (NEGATIVE); LEUKOCYTE ESTERASE, URINE AUTO 3+ (NEGATIVE); MUCUS, URINE MODERATE (NEGATIVE); NITRITE, URINE AUTO NEGATIVE (NEGATIVE); PROTEIN, URINE AUTO 2+ mg/dL (NEGATIVE); RBC, URINE AUTO 21 /HPF (0-3); SPECIFIC GRAVITY URINE AUTO 1.027 (1.002-1.035); SQUAMOUS EPITHELIAL CELL UR AU 0 /HPF (0-6); TRANSITIONAL EPITHELIAL AUTO 4 /HPF; UROBILINOGEN, URINE AUTO 0.2 mg/dL (0.0-2.0); WBC, URINE AUTO TNTC /HPF (0-3)
== END ==
LOC: M LAB REF 11:36
PROVIDERS: ATTEND Physician Assistant
DX: N39.0 Urinary tract infection, site not specified (principal)

== ENCOUNTER → 2022-04-02 | Outpatient (REF) | payer MEDICARE, MEDICAID | LOC: M LAB REF 16:07 | PROVIDERS: ATTEND Physician Assistant Medical | DX: Z01.84 Encounter for antibody response examination (principal) ==

== ENCOUNTER → 2022-07-30 | Outpatient (CLI) | payer MEDICARE | LOC: M WHC 15:11 | PROVIDERS: ATTEND Physician Assistant Medical | DX: Z12.31 Encounter for screening mammogram for malignant neoplasm of breast (principal) ==

== ENCOUNTER → 2022-10-04 | Outpatient (REF) | payer MEDICARE, OTHER ==
[2022-10-07 14:08] LABS: ANTINUCLEAR ANTIBODIES DIRECT Negative (Negative)
== END ==
LOC: M LAB REF 16:26
PROVIDERS: ATTEND Physician Assistant Medical
DX: L65.9 Nonscarring hair loss, unspecified (principal)

== ENCOUNTER → 2022-12-03 | Outpatient (REF) | payer MEDICARE, OTHER | LOC: M SFHCWAGY 13:21 | PROVIDERS: ATTEND Nurse Practitioner Family | DX: Z12.4 Encounter for screening for malignant neoplasm of cervix (principal); R87.610 Atypical squamous cells of undetermined significance on cytologic smear of cervix (ASC-US) | CPT/HCPCS: 87624; G0123 ==

== ENCOUNTER → 2023-10-22 | Outpatient (REF) | payer MEDICARE, OTHER ==
[2023-10-22 17:23] LABS: APPEARANCE, URINE CLEAR (CLEAR); BACTERIA, URINE AUTO NEGATIVE (NEGATIVE); BILIRUBIN, URINE AUTO NEGATIVE (NEGATIVE); BLOOD, URINE BLOOD NEGATIVE (NEGATIVE); COLOR, URINE STRAW (YELLOW); GLUCOSE, URINE (UA) AUTO NEGATIVE (NEGATIVE); KETONE, URINE AUTO NEGATIVE (NEGATIVE); LEUKOCYTE ESTERASE, URINE AUTO NEGATIVE (NEGATIVE); NITRITE, URINE AUTO NEGATIVE (NEGATIVE); PROTEIN, URINE AUTO NEGATIVE (NEGATIVE); RBC, URINE AUTO 0 /HPF (0-3); SPECIFIC GRAVITY URINE AUTO 1.013 (1.002-1.035); SQUAMOUS EPITHELIAL CELL UR AU 0 /HPF (0-6); UROBILINOGEN, URINE AUTO 0.2 mg/dL (0.0-2.0); WBC, URINE AUTO 0 /HPF (0-3)
[2023-10-23 12:32] LABS: INR 0.9; PARTIAL THROMBOPLASTIN TIME 28.8 SECONDS (24.8-34.2); PROTHROMBIN TIME 11.9 SECONDS (12.5-14.5)
== END ==
LOC: M LAB REF 16:49
PROVIDERS: ATTEND Internal Medicine
DX: Z01.818 Encounter for other preprocedural examination (principal); Z79.899 Other long term (current) drug therapy

== ENCOUNTER → 2024-03-15 | Outpatient (CLI) | payer MEDICARE, OTHER | LOC: M WHC 13:40 | PROVIDERS: ATTEND Physician Assistant Medical | DX: Z12.31 Encounter for screening mammogram for malignant neoplasm of breast (principal) ==

== ENCOUNTER → 2024-04-15 | Outpatient (REF) | payer MEDICARE, OTHER ==
[2024-04-16 12:59] LABS: FOLLICLE STIMULATING HORMONE 70.1 mIU/ML
[2024-04-16 13:00] LABS: LUTEINIZING HORMONE 27.8 mIU/ML
[2024-04-20 23:37] LABS: TESTOSTERONE FREE (DIRECT) 1.2 pg/mL (0.1-6.4)
== END ==
LOC: M LAB REF 11:26
PROVIDERS: ATTEND Physician Assistant Medical
DX: N95.1 Menopausal and female climacteric states (principal)

== ENCOUNTER → 2024-04-19 | Outpatient (REF) | payer OTHER, MEDICARE ==
[2024-04-19 13:24] LABS: APPEARANCE, URINE HAZY (CLEAR); BACTERIA, URINE AUTO NEGATIVE (NEGATIVE); BILIRUBIN, URINE AUTO NEGATIVE (NEGATIVE); BLOOD, URINE BLOOD NEGATIVE (NEGATIVE); COLOR, URINE YELLOW (YELLOW); GLUCOSE, URINE (UA) AUTO NEGATIVE (NEGATIVE); KETONE, URINE AUTO NEGATIVE (NEGATIVE); LEUKOCYTE ESTERASE, URINE AUTO 2+ (NEGATIVE); MUCUS, URINE SMALL (NEGATIVE); NITRITE, URINE AUTO NEGATIVE (NEGATIVE); PROTEIN, URINE AUTO NEGATIVE (NEGATIVE); RBC, URINE AUTO 2 /HPF (0-3); SPECIFIC GRAVITY URINE AUTO 1.021 (1.002-1.035); SQUAMOUS EPITHELIAL CELL UR AU 0 /HPF (0-6); UROBILINOGEN, URINE AUTO 0.2 mg/dL (0.0-2.0); WBC, URINE AUTO 73 /HPF (0-3)
== END ==
LOC: M LAB REF 12:12
PROVIDERS: ATTEND Physician Assistant Medical
DX: N39.0 Urinary tract infection, site not specified (principal)

== ENCOUNTER → 2024-09-16 | Outpatient (REF) | payer MEDICARE, OTHER | LOC: M SFHCDERM 08:45 | PROVIDERS: ATTEND Nurse Practitioner Family | DX: L82.1 Other seborrheic keratosis (principal) ==

== ENCOUNTER → 2024-11-15 | Outpatient (REF) | payer OTHER, MEDICARE, MEDICAID ==
[2024-11-15 13:30] LABS: CREATININE, URINE 227.9 MG/DL; MAU/CREAT RATIO 3.5 MCG/MG (0.0-30.0)
[2024-11-15 15:14] LABS: BLOOD UREA NITROGEN 17 MG/DL (9-23); CALCIUM LEVEL 9.2 MG/DL (8.3-10.6); CARBON DIOXIDE LEVEL 30 MMOL/L (20-31); CHLORIDE LEVEL 106 MMOL/L (98-107); CHOLESTEROL LEVEL 247 MG/DL (<200); CHOLESTEROL RISK RATIO 3.87 (<5); CREATININE FOR GFR 0.68 MG/DL (0.55-1.30); GLOMERULAR FILTRATION RATE > 90.0 (>45); GLUCOSE, FASTING 100 MG/DL (74-106); HDL CHOLESTEROL 63.8 MG/DL (>40); LDL CHOLESTEROL 151.2 MG/DL (<100); NON-HDL-C 183.2 MG/DL; POTASSIUM SERUM 4.9 MMOL/L (3.5-5.1); SODIUM LEVEL 143 MMOL/L (136-145); THYROID STIMULATING HORMONE 1.804 uIU/ML (0.55-4.78); TRIGLYCERIDES LEVEL 160 MG/DL (<150)
[2024-11-15 16:53] LABS: HEMOGLOBIN A1c 5.4 % (4.0-6.0)
== END ==
LOC: M LAB REF 12:09
PROVIDERS: ATTEND Pediatrics
DX: I10 Essential (primary) hypertension (principal); Z68.33 Body mass index [BMI] 33.0-33.9, adult; E66.09 Other obesity due to excess calories; E66.811 Obesity, class 1; E78.5 Hyperlipidemia, unspecified

== ENCOUNTER → 2024-11-22 | Outpatient (CLI) | payer MEDICARE, MEDICAID | LOC: M RAD 10:17 | PROVIDERS: ATTEND Physician Assistant Medical | DX: S69.91XA Unspecified injury of right wrist, hand and finger(s), initial encounter (principal); X58.XXXA Exposure to other specified factors, initial encounter; Y92.9 Unspecified place or not applicable; Y93.9 Activity, unspecified; Y99.9 Unspecified external cause status ==

== ENCOUNTER → 2025-02-24 | Outpatient (CLI) | payer MEDICARE, MEDICAID ==
[~2025-02-24] MED LIST changes: +HYDR12.510 PO; -HYDR12CA PO
[2025-02-24 10:42] LABS: ALT/SGPT 29 U/L (7.0-40); AST/SGOT 27 U/L (<34); CALCIUM LEVEL 8.3 MG/DL (8.3-10.6); CARBON DIOXIDE LEVEL 30 MMOL/L (20-31); CHLORIDE LEVEL 104 MMOL/L (98-107); CHOLESTEROL LEVEL 243 MG/DL (<200); CHOLESTEROL RISK RATIO 5.67 (<5); CREATININE FOR GFR 0.73 MG/DL (0.55-1.30); GLOMERULAR FILTRATION RATE 89.0 (>45); NON-HDL-C 200.2 MG/DL; POTASSIUM SERUM 4.3 MMOL/L (3.5-5.1); SODIUM LEVEL 141 MMOL/L (136-145); TRIGLYCERIDES LEVEL 407 MG/DL (<150)
== END ==
LOC: M LAB 08:29
PROVIDERS: ATTEND Student in an Organized Health Care Education/Training Program
DX: E78.5 Hyperlipidemia, unspecified (principal); I10 Essential (primary) hypertension

== ENCOUNTER → 2025-05-11 | Outpatient (CLI) | payer MEDICARE, MEDICAID ==
[2025-05-11 16:11] LABS: BASO # 0.1 10^3/uL (0.0-0.2); BASO % 0.7 % (0.0-1.0); EOS # 0.3 10^3/uL (0.0-0.5); EOS % 3.5 % (0.0-3.0); LYMPH # 3.2 10^3/uL (1.5-5.0); LYMPH % 35.9 % (24.0-44.0); MONO # 0.7 10^3/uL (0.0-0.8); MONO % 7.5 % (2.0-8.0); NEUTROPHILS # 4.7 10^3/uL (1.5-8.5); NEUTROPHILS % 52.1 % (36.0-66.0); PLATELET COUNT, AUTOMATED 199 10^3/uL (150-450)
[2025-05-11 16:13] LABS: APPEARANCE, URINE CLEAR (CLEAR); BACTERIA, URINE AUTO NEGATIVE (NEGATIVE); BILIRUBIN, URINE AUTO NEGATIVE (NEGATIVE); BLOOD, URINE BLOOD NEGATIVE (NEGATIVE); GLUCOSE, URINE (UA) AUTO NEGATIVE (NEGATIVE); KETONE, URINE AUTO NEGATIVE (NEGATIVE); LEUKOCYTE ESTERASE, URINE AUTO NEGATIVE (NEGATIVE); MUCUS, URINE SMALL (NEGATIVE); NITRITE, URINE AUTO NEGATIVE (NEGATIVE); PROTEIN, URINE AUTO NEGATIVE (NEGATIVE); RBC, URINE AUTO 0 /HPF (0-3); SPECIFIC GRAVITY URINE AUTO 1.023 (1.002-1.035); SQUAMOUS EPITHELIAL CELL UR AU 0 /HPF (0-6); UROBILINOGEN, URINE AUTO 0.2 mg/dL (0.0-2.0); WBC, URINE AUTO 0 /HPF (0-3)
[2025-05-11 16:37] LABS: ALT/SGPT 42.0 U/L (7.0-40); AST/SGOT 36.0 U/L (<34); CALCIUM LEVEL 8.7 MG/DL (8.3-10.6); CARBON DIOXIDE LEVEL 29.0 MMOL/L (20-31); CHLORIDE LEVEL 105.0 MMOL/L (98-107); CREATININE FOR GFR 0.73 MG/DL (0.55-1.30); GLOMERULAR FILTRATION RATE 89.0 (>45); IRON (FE) 67.0 UG/DL (50-170); POTASSIUM SERUM 4.2 MMOL/L (3.5-5.1); SODIUM LEVEL 144.0 MMOL/L (136-145)
== END ==
LOC: M RAD 14:53
PROVIDERS: ATTEND Student in an Organized Health Care Education/Training Program
DX: I95.9 Hypotension, unspecified (principal); R53.83 Other fatigue; E61.1 Iron deficiency